=== PATIENT | female | born 1980 | race Caucasian/White ===

== ENCOUNTER 2020-10-13 06:01 | Inpatient (IN) ==
[2020-10-08 12:32] LABS: Basophils # 0.1 10*3/uL (0.0-0.2); Basophils % 0.9 % (0.0-0.8); Eosinophils # 0.1 10*3/uL (0.0-0.87); Eosinophils % 0.9 % (0.00-10.9); Hematocrit 39.6 VOL% (35.7-47.0); Hemoglobin 13.6 GM/DL (12.0-16.0); Immature Granulocytes % 0.4 %; Immature Granulocytes Absolute 0.04 #; Lymphocytes # 2.8 10*3/uL (1.4-4.0); Lymphocytes % 26.1 % (21.3-54.2); Mean Corpuscular HGB Conc 34.3 GM/DL (32-36); Mean Corpuscular Volume 92.5 FL (87-102); Mean Platelet Volume 9.9 FL (9.6-12.0); Monocytes % 4.1 % (1.7-12.7); Neutrophils % 67.6 % (38.7-73.9); Platelet Count 267 T/CUMM (130-400); Red Blood Count 4.28 MC/CUMM (3.8-5.5); Red Cell Distribution Width 12.4 % (9.3-17.3); White Blood Count 10.5 T/CUMM (4-12)
[2020-10-08 12:41] LABS: Calcium 8.9 MG/DL (8.5-10.1); Osmolality,Calculated 279.4 MOS/KG (273-304)
[~2020-10-13 06:01] MED LIST: LACTATED RINGERS 1,000 ML IV SCH
[2020-10-13] MEDS ORDERED: CLINDAMYCIN INJ 900 MG in PREMIX 1 EACH IV ONE (06:30)
[2020-10-13] MEDS ORDERED: fentaNYL 250 MCG/5 ML VIAL ONE (06:41)
[2020-10-13] MEDS ORDERED: ROPIVACAINE 0.5% 30 ML VIAL ONE (06:42)
[2020-10-13] MEDS ORDERED: LIDOCAINE 1% 5 ML VIAL ONE (06:42)
[2020-10-13] MEDS ORDERED: MIDAZOLAM 2 MG/2 ML VIAL ONE (06:42)
[2020-10-13] MEDS ORDERED: SCOPOLAMINE 1.5 MG PATCH TRANSDERM ONE (07:06)
[2020-10-13] MEDS ORDERED: SUCCINYLCHOLINE 200 MG/10 ML VIAL ONE (08:04)
[2020-10-13] MEDS ORDERED: LACTATED RINGERS 1,000 ML IV ONE (08:04)
[2020-10-13] MEDS ORDERED: ONDANSETRON 4 MG/2 ML VIAL ONE (08:04)
[2020-10-13] MEDS ORDERED: ROCURONIUM 50 MG/5 ML VIAL IV ONE (08:04)
[2020-10-13] MEDS ORDERED: fentaNYL 100 MCG/2 ML VIAL ONE (08:04)
[2020-10-13] MEDS ORDERED: PROMETHAZINE 25 MG/1 ML VIAL ONE (08:04)
[2020-10-13] MEDS ORDERED: LIDOCAINE 2% 5 ML VIAL ONE (08:04)
[2020-10-13] MEDS ORDERED: propofoL 200 MG/20 ML VIAL IV ONE (08:04)
[2020-10-13] MEDS ORDERED: GLYCOPYRROLATE 0.4 MG/2 ML VIAL ONE (09:04)
[2020-10-13] MEDS ORDERED: NEOSTIGMINE 10 MG/10 ML VIAL ONE (09:04)
[2020-10-13] MEDS ORDERED: KETOROLAC 30 MG/1 ML VIAL ONE (09:05)
[2020-10-13 09:29] LABS: Bilirubin,Urine Negative (Negative); Blood, Urine Moderate mg/dL (Negative); Glucose,Urine (UA) Negative (Negative); Hyaline Casts,Urine 1 /LPF (0-3); Ketones,Urine Negative (Negative); Mucus,Urine Many /LPF (Occasional); Nitrite,Urine Negative (Negative); Protein,Urine Negative; RBC,Urine 4 /HPF (0-4); Squamous Epithelial Cell,Urine Few /HPF (0-10); Urine Appearance CLEAR (Clear); Urine Color Yellow (Yellow); Urine Urobilinogen < 2.0 EU/DL (0.2-1.0)
[2020-10-13] MEDS ORDERED: ACETAMINOPHEN 325 MG TABLET PO PRN (09:50)
[2020-10-13] MEDS ORDERED: HYDROmorphone 2 MG/1 ML VIAL IV PRN (10:01)
[2020-10-13] MEDS: ONDANSETRON 4 MG/2 ML VIAL IV PRN ×2 (11:22→16:54)
[2020-10-13] MEDS: LEVOFLOXACIN INJ 750 MG in PREMIX 1 EACH IV SCH (11:22)
[2020-10-13] MEDS: HYDROmorphone 2 MG/1 ML VIAL IV PRN ×4 (11:22→21:34)
[2020-10-13] MEDS: metroNIDAZOLE INJ 500 MG in PREMIX 1 EACH IV SCH ×2 (14:16→18:15)
[2020-10-14] MEDS: ONDANSETRON 4 MG/2 ML VIAL IV PRN ×3 (00:31→20:41)
[2020-10-14] MEDS: HYDROmorphone 2 MG/1 ML VIAL IV PRN ×6 (00:35→16:14)
[2020-10-14] MEDS: LACTATED RINGERS 1,000 ML IV SCH ×2 (00:38)
[2020-10-14] MEDS: metroNIDAZOLE INJ 500 MG in PREMIX 1 EACH IV SCH ×3 (03:41→20:43)
[2020-10-14 05:45] LABS: Basophils % 0.5 % (0.0-0.8); Hematocrit 33.7 VOL% (35.7-47.0); Hemoglobin 11.3 GM/DL (12.0-16.0); Immature Granulocytes % 0.3 %; Immature Granulocytes Absolute 0.02 #; Lymphocytes # 1.1 10*3/uL (1.4-4.0); Lymphocytes % 17.1 % (21.3-54.2); Mean Corpuscular HGB Conc 33.5 GM/DL (32-36); Mean Corpuscular Volume 94.1 FL (87-102); Mean Platelet Volume 10.2 FL (9.6-12.0); Monocytes % 11.5 % (1.7-12.7); Neutrophils % 70.6 % (38.7-73.9); Platelet Count 176 T/CUMM (130-400); Red Blood Count 3.58 MC/CUMM (3.8-5.5); Red Cell Distribution Width 12.2 % (9.3-17.3); White Blood Count 6.6 T/CUMM (4-12)
[2020-10-14 06:12] LABS: Osmolality,Calculated 279.3 MOS/KG (273-304)
[2020-10-14] MEDS ORDERED: PROMETHAZINE 25 MG/1 ML VIAL IM PRN (09:04)
[2020-10-14] MEDS: PANTOPRAZOLE 40 MG TABLET PO SCH (09:17)
[2020-10-14] MEDS ORDERED: HYDROmorphone 2 MG/1 ML VIAL IV PRN (10:06)
[2020-10-14] MEDS: LEVOFLOXACIN INJ 750 MG in PREMIX 1 EACH IV SCH (10:14)
[2020-10-14] MEDS: KETOROLAC 15 MG/1 ML VIAL IV SCH ×3 (10:51→23:22)
[2020-10-14] MEDS: PROMETHAZINE 25 MG TABLET PO PRN (23:53)
[2020-10-15] MEDS: LACTATED RINGERS 1,000 ML IV SCH (02:27)
[2020-10-15] MEDS: metroNIDAZOLE INJ 500 MG in PREMIX 1 EACH IV SCH (03:14)
[2020-10-15] MEDS: KETOROLAC 15 MG/1 ML VIAL IV SCH (05:21)
[2020-10-15 07:11] VITALS: BP 118/77
[2020-10-15] MEDS ORDERED: PROCHLORPERAZINE 10 MG TABLET PO SCH (09:00)
[2020-10-15] MEDS: PROMETHAZINE 25 MG TABLET PO PRN (09:31)
[2020-10-15] MEDS: PANTOPRAZOLE 40 MG TABLET PO SCH (09:31)
[2020-10-15] MEDS: PREGABALIN 75 MG CAPSULE PO SCH ×2 (09:32→09:34)
== END 2020-10-15 10:40 | disposition home or self-care (01) | DRG 328 ==
LOC: N.OR 06:01 → N.SDSINP 06:02 → EDSTATUS 07:30 → N.3E 09:50
PROVIDERS: ADMIT Surgery; ATTEND Surgery